=== PATIENT | male | born 1980 | race Caucasian/White ===

== ENCOUNTER → 2025-03-06 | Outpatient (CLI) | payer MEDICAID, SELFPAY ==
--- NOTE | 2025-03-06 10:04 | XR_ITS ---
Examination: CT abdomen with intravenous contrast CT pelvis with intravenous contrast 2-D coronal reconstructions 2-D sagittal reconstructions Date and time of exam:March 06, 2025 1032 hours INDICATIONS: Generalized abdominal pain nausea vomiting beginning 2 weeks ago. CTDI: vol (mGy) 23.8 DLP: (mGycm) 1009 Technique: Multiple axial sections of the abdomen and pelvis have been obtained. 64 slice high-resolution scanner used. 3 mm axial sections have been obtained, post intravenous injection 60 cc [id number] 2-D sagittal, coronal reconstructions obtained. Low dose protocols were performed. One or more of the following dose reduction techniques were used; automated exposure control, adjustment of the mA and/or KV according to patient size, use of iterative reconstruction technique. Findings: No focal liver or splenic lesions Absent gallbladder No pancreatic or adrenal mass Significant bilateral renal parenchymal scar formation No renal or ureteral calculi, no hydronephrosis Aorta normal size No bowel obstruction No pericecal inflammatory change No diverticulitis Contracted urinary bladder, urinary bladder wall thickening Advanced disc narrowing L5-S1 IMPRESSION: Significant bilateral renal parenchymal scar formation Urinary bladder wall thickening, differential would include cystitis, clinical correlation advised
--- NOTE | 2025-03-06 10:23 | XR_ITS ---
Examination: Upper GI series with KUB Esophagram standard 22 spot fluoroscopic films of the esophagus and stomach Date and time: March 06, 2025 0957 hours INDICATIONS: Vomiting blood episode 2 months ago TECHNIQUE AND FINDINGS: Patient swallowed thin barium with 22 spot fluoroscopic films of the esophagus and stomach Fluoroscopy 0.31 minute Primary peristaltic esophageal waves Moderate intermittent gastroesophageal reflux. There is no esophageal stricture. Small sliding esophageal hernia. Mucosal folds are thickening in the gastric antrum without obvious ulcer formation There is spasm and irritability involving the duodenal bulb although no duodenal ulcer crater Mucosal folds are thickened in the duodenal sweep IMPRESSION: Moderate intermittent gastroesophageal reflux Mucosal fold thickening in the gastric antrum most consistent with antral gastritis Active peptic disease duodenum, no duodenal ulcer
== END | disposition home or self-care (01) ==
LOC: CCTX 09:45
PROVIDERS: PCP Registered Nurse Community Health; Referring Provider Registered Nurse Community Health; Visit Provider Registered Nurse Community Health
DX: K21.9 Gastro-esophageal reflux disease without esophagitis (principal); R10.9 Unspecified abdominal pain; N32.89 Other specified disorders of bladder; N28.89 Other specified disorders of kidney and ureter; K44.9 Diaphragmatic hernia without obstruction or gangrene
CPT/HCPCS: 74177; 74240; A4649; Q9967